=== PATIENT | male | born 1940 | race Caucasian/White ===

== ENCOUNTER 2021-04-08 10:36 | Inpatient (IN) | payer MEDICARE, BC ==
[2021-04-08] MEDS ORDERED: Dexamethasone 10 MG/ML VIAL ONE (11:28)
[2021-04-08 11:52] LABS: #Monocytes 0.5 10x3/uL (0.0-1.1); #Neutrophils 4.4 10x3/uL (1.5-8.4); %Basophils 0.2 % (0.0-2.0); %Eosinophils 0.4 % (0.0-6.0); %Lymphocytes 7.8 % (18.0-47.0); %Monocytes 9.8 % (0.0-10.0); %Neutrophils 80.5 % (40.0-75.0); Hemoglobin 7.9 g/dL (13.5-17.5); Mean Corpuscular HGB CONC 31.2 g/dL (32.0-36.0); Mean Corpuscular Volume 96.2 fl (81.2-95.1); Mean Platelet Volume 10.2 fl (7.4-10.4); Platelet Count 420 10x3/uL (150-450); RBC Distribution Width 14.9 % (11.5-14.5); Red Blood Cell (RBC) Count 2.63 10x6/uL (4.32-5.72); White Blood Cell (WBC) Count 5.4 10x3/uL (3.5-10.5)
[2021-04-08 12:03] LABS: INR-International Normal Ratio 1.1; PTT 26.5 sec (22.0-33.0); Prothrombin Time 11.8 sec (9.5-12.1)
[2021-04-08 12:13] LABS: ALT (SGPT) 48 U/L (8-55); AST (SGOT) 53 U/L (5-34); Albumin 3.5 g/dL (3.4-4.8); Alkaline Phosphatase 83 U/L (40-110); Anion Gap 18 mmol/L (10-20); BUN (Urea Nitrogen) 21 mg/dL (8.4-25.7); Bilirubin, Total 0.3 mg/dL (0.2-1.2); CK (CPK) 129 U/L (30-200); Calc. Creatinine Clearance 0 mL/min (70-130); Calcium 8.6 mg/dL (7.8-10.44); Carbon Dioxide 29 mmol/L (23-31); Chloride 100 mmol/L (98-107); Globulin 2.5 g/dL (2.4-3.5); Glucose 97 mg/dL (83-110); Lipase 42 U/L (8-78); Potassium 3.9 mmol/L (3.5-5.1); Sodium 143 mmol/L (136-145)
[2021-04-08] MEDS ORDERED: Ondansetron PF 4 MG/2 ML Vial IVP PRN (16:08)
[2021-04-08] MEDS ORDERED: Acetaminophen 650 MG Suppository PR PRN (16:08)
[2021-04-08] MEDS ORDERED: Ondansetron ODT 4 MG TAB PO PRN (16:08)
[2021-04-08] MEDS ORDERED: Acetaminophen 325 MG TAB PO PRN (16:08)
[2021-04-08 16:46] VITALS: BMI 18.3
[2021-04-08] MEDS: cefTRIAXone\\ROCEPHIN 1 GM in Sodium Chloride 0.9% 100 ML IVPB SCH (18:10)
[2021-04-08] MEDS: Azithromycin 500 MG in Sodium Chloride 0.9% 250 ML 250 ML IVPB SCH (19:52)
[2021-04-08] MEDS ORDERED: Atorvastatin Calcium 10 MG TAB PO SCH (21:00)
[2021-04-08] MEDS ORDERED: Famotidine 20 MG TAB PO SCH (21:00)
[2021-04-09 05:12] LABS: #Monocytes 0.2 10x3/uL (0.0-1.1); %Lymphocytes 8.2 % (18.0-47.0); %Monocytes 6.2 % (0.0-10.0); %Neutrophils 83.9 % (40.0-75.0); Mean Corpuscular Hemoglobin 30.7 pg (27.0-33.0); Mean Corpuscular Volume 96.1 fl (81.2-95.1); Mean Platelet Volume 10.5 fl (7.4-10.4); Platelet Count 414 10x3/uL (150-450); Red Blood Cell (RBC) Count 2.28 10x6/uL (4.32-5.72); White Blood Cell (WBC) Count 3.5 10x3/uL (3.5-10.5)
[2021-04-09 05:25] LABS: Anion Gap 14 mmol/L (10-20); BUN (Urea Nitrogen) 21 mg/dL (8.4-25.7); Calc. Creatinine Clearance 38 mL/min (70-130); Calcium 8.2 mg/dL (7.8-10.44); Carbon Dioxide 27 mmol/L (23-31); Chloride 105 mmol/L (98-107); Glucose 126 mg/dL (83-110); Sodium 142 mmol/L (136-145)
[2021-04-09] MEDS: Dexamethasone 4 MG TAB PO SCH (07:51)
[2021-04-09] MEDS ORDERED: Aspirin 81 mg Enteric Coated Tablet PO SCH (09:00)
[2021-04-09] MEDS ORDERED: Hyoscyamine Sulfate SL 0.125 mg Tablet PO PRN (12:35)
[2021-04-09] MEDS: cefTRIAXone\\ROCEPHIN 1 GM in Sodium Chloride 0.9% 100 ML IVPB SCH (17:40)
[2021-04-09] MEDS: Azithromycin 500 MG in Sodium Chloride 0.9% 250 ML 250 ML IVPB SCH (20:07)
[2021-04-09] MEDS ORDERED: Melatonin 3 MG TAB PO SCH (21:00)
[2021-04-09] MEDS: Famotidine 20 MG TAB PO SCH (21:39)
[2021-04-09] MEDS: Cholecalciferol 1,000 UNITS (25 MCG) TAB PO SCH (21:39)
[2021-04-09] MEDS: Rosuvastatin 20 MG TAB PO SCH (21:40)
[2021-04-09] MEDS: TICAGRELOR 90 MG TABLET PO SCH (21:40)
[2021-04-10] MEDS ORDERED: Ventolin HFA Inhaler 60 PUFF INHALER INH PRN (00:05)
[2021-04-10 04:51] LABS: #Monocytes 0.7 10x3/uL (0.0-1.1); %Basophils 0.2 % (0.0-2.0); %Lymphocytes 4.1 % (18.0-47.0); %Monocytes 6.7 % (0.0-10.0); %Neutrophils 86.9 % (40.0-75.0); Hemoglobin 8.6 g/dL (13.5-17.5); Mean Corpuscular Hemoglobin 30.4 pg (27.0-33.0); Mean Corpuscular Volume 92.2 fl (81.2-95.1); Mean Platelet Volume 10.6 fl (7.4-10.4); Platelet Count 474 10x3/uL (150-450); RBC Distribution Width 16.5 % (11.5-14.5); Red Blood Cell (RBC) Count 2.83 10x6/uL (4.32-5.72); White Blood Cell (WBC) Count 10.4 10x3/uL (3.5-10.5)
[2021-04-10 04:56] LABS: Anion Gap 14 mmol/L (10-20); BUN (Urea Nitrogen) 25 mg/dL (8.4-25.7); Calc. Creatinine Clearance 40 mL/min (70-130); Calcium 8.3 mg/dL (7.8-10.44); Carbon Dioxide 26 mmol/L (23-31); Chloride 107 mmol/L (98-107); Glucose 123 mg/dL (83-110); Potassium 3.8 mmol/L (3.5-5.1); Sodium 143 mmol/L (136-145)
[2021-04-10] MEDS: Dexamethasone 4 MG TAB PO SCH (07:44)
[2021-04-10] MEDS: Fish Oil 1,000 MG CAP PO SCH (07:44)
[2021-04-10] MEDS: Ferrous Sulfate 325 MG TAB PO SCH (07:44)
[2021-04-10] MEDS: Cholecalciferol 1,000 UNITS (25 MCG) TAB PO SCH ×2 (07:44→20:55)
[2021-04-10] MEDS: TICAGRELOR 90 MG TABLET PO SCH (07:45)
[2021-04-10] MEDS: cefTRIAXone\\ROCEPHIN 1 GM in Sodium Chloride 0.9% 100 ML IVPB SCH (18:35)
[2021-04-10] MEDS: Azithromycin 500 MG in Sodium Chloride 0.9% 250 ML 250 ML IVPB SCH (19:35)
[2021-04-10] MEDS: Rosuvastatin 20 MG TAB PO SCH (20:54)
[2021-04-10] MEDS: Famotidine 20 MG TAB PO SCH (20:54)
[2021-04-11 04:59] VITALS: TEMP 98
[2021-04-11 05:13] LABS: #Monocytes 0.7 10x3/uL (0.0-1.1); #Neutrophils 8.5 10x3/uL (1.5-8.4); %Basophils 0.2 % (0.0-2.0); %Lymphocytes 4.5 % (18.0-47.0); %Monocytes 7.4 % (0.0-10.0); %Neutrophils 86.8 % (40.0-75.0); Hemoglobin 8.8 g/dL (13.5-17.5); Mean Corpuscular Volume 93.9 fl (81.2-95.1); Mean Platelet Volume 10.3 fl (7.4-10.4); Platelet Count 554 10x3/uL (150-450); RBC Distribution Width 15.7 % (11.5-14.5); Red Blood Cell (RBC) Count 2.93 10x6/uL (4.32-5.72); White Blood Cell (WBC) Count 9.8 10x3/uL (3.5-10.5)
[2021-04-11 05:27] LABS: Anion Gap 12 mmol/L (10-20); BUN (Urea Nitrogen) 22 mg/dL (8.4-25.7); Calc. Creatinine Clearance 42 mL/min (70-130); Calcium 8.5 mg/dL (7.8-10.44); Carbon Dioxide 26 mmol/L (23-31); Chloride 107 mmol/L (98-107); Glucose 112 mg/dL (83-110); Potassium 3.7 mmol/L (3.5-5.1); Sodium 141 mmol/L (136-145)
[2021-04-11] MEDS: Fish Oil 1,000 MG CAP PO SCH (09:36)
[2021-04-11] MEDS: Cholecalciferol 1,000 UNITS (25 MCG) TAB PO SCH (09:36)
[2021-04-11] MEDS: Ferrous Sulfate 325 MG TAB PO SCH (09:36)
[2021-04-11] MEDS: Dexamethasone 4 MG TAB PO SCH (09:36)
[2021-04-11 10:20] VITALS: BP 154/86
== END 2021-04-11 13:45 | disposition home health service (06) | DRG 177 ==
LOC: CSHERS 10:36 → CSHTELE 15:06
PROVIDERS: ADMIT Hospitalist; ATTEND Hospitalist
PROC: 8E0ZXY6 Isolation (ICD-10-PCS; 2021-04-08)
PROC: 30233N1 Transfusion of Nonautologous Red Blood Cells into Peripheral Vein, Percutaneous Approach (ICD-10-PCS; principal; 2021-04-09)
DX: U07.1 COVID-19 (principal); J12.82 Pneumonia due to coronavirus disease 2019; J96.21 Acute and chronic respiratory failure with hypoxia; J15.9 Unspecified bacterial pneumonia; E78.5 Hyperlipidemia, unspecified; E11.9 Type 2 diabetes mellitus without complications; I25.10 Atherosclerotic heart disease of native coronary artery without angina pectoris; N18.9 Chronic kidney disease, unspecified; M41.9 Scoliosis, unspecified; D50.9 Iron deficiency anemia, unspecified; D63.1 Anemia in chronic kidney disease; I12.9 Hypertensive chronic kidney disease with stage 1 through stage 4 chronic kidney disease, or unspecified chronic kidney disease; Z79.82 Long term (current) use of aspirin; Z79.899 Other long term (current) drug therapy; Z95.5 Presence of coronary angioplasty implant and graft; Z85.46 Personal history of malignant neoplasm of prostate; Z95.0 Presence of cardiac pacemaker; Z87.891 Personal history of nicotine dependence
CPT/HCPCS: 36415; 36430; 71275; 80048; 80053; 82550; 83690; 83880; 84484; 85025; 85610; 85730; 86140; 86850; 86900; 86901; 87070; 87205; 93005; 94760; J0456; J0696; J1100; J3490; J7050; J8540; P9016

== ENCOUNTER 2022-07-28 12:28 | Outpatient (CLI) | payer MEDICARE, BC | END 2022-07-28 12:29 | disposition home or self-care (01) | LOC: CSHCT 12:28 | PROVIDERS: ATTEND Urology | DX: C61 Malignant neoplasm of prostate (principal); Z92.3 Personal history of irradiation; R31.0 Gross hematuria; N35.916 Unspecified urethral stricture, male, overlapping sites; N30.40 Irradiation cystitis without hematuria; N20.0 Calculus of kidney; Z90.5 Acquired absence of kidney | CPT/HCPCS: 74178; 82565 ==

== ENCOUNTER 2023-03-04 11:42 | Outpatient (CLI) | payer MEDICARE, BC | END 2023-03-04 11:43 | disposition home or self-care (01) | LOC: CSHMRI 11:42 | PROVIDERS: ATTEND Specialist | DX: M54.12 Radiculopathy, cervical region (principal); M54.14 Radiculopathy, thoracic region; R93.7 Abnormal findings on diagnostic imaging of other parts of musculoskeletal system; M41.9 Scoliosis, unspecified; M48.02 Spinal stenosis, cervical region | CPT/HCPCS: 72141; 72146 ==